=== PATIENT | female | born 1980 | race Two or more races ===

== ENCOUNTER → 2024-05-18 14:00 | Outpatient (REF) | payer BC, SELFPAY | LOC: HWWDC 14:00 | PROVIDERS: ATTENDING PHYSICIAN Nurse Practitioner Family | DX: Z12.31 Encounter for screening mammogram for malignant neoplasm of breast (principal) | CPT/HCPCS: 77063; 77067 ==

== ENCOUNTER → 2024-09-30 10:22 | Outpatient (REF) | payer BC, SELFPAY | LOC: HWRAD 10:22 | PROVIDERS: ATTENDING PHYSICIAN Obstetrics & Gynecology Gynecology; FAMILY PHYSICIAN Nurse Practitioner Family | DX: N94.0 Mittelschmerz (principal) | CPT/HCPCS: 76830; 76856 ==

== ENCOUNTER → 2025-07-17 18:57 | Outpatient (REF) | payer BC, SELFPAY | LOC: WDC 18:57 | PROVIDERS: ATTENDING PHYSICIAN Obstetrics & Gynecology Gynecology; FAMILY PHYSICIAN Nurse Practitioner Family | DX: Z12.31 Encounter for screening mammogram for malignant neoplasm of breast (principal) | CPT/HCPCS: 77063; 77067 ==